=== PATIENT | female | born 1965 | race Caucasian/White ===

== ENCOUNTER → 2020-07-06 12:22 | Outpatient (CLI) | payer OTHER, SELFPAY | PROVIDERS: PCP Family Medicine; Visit Provider Internal Medicine Gastroenterology | DX: Z01.812 Encounter for preprocedural laboratory examination (principal); Z20.822 Contact with and (suspected) exposure to COVID-19; Z13.810 Encounter for screening for upper gastrointestinal disorder | CPT/HCPCS: U0003 ==

== ENCOUNTER 2020-07-09 11:34 | Day surgery (SDC) | payer OTHER, SELFPAY ==
[2020-07-03 11:03] VITALS: BMI 18.5
[2020-07-09] VITALS (7 sets, daily range): BP systolic 100–140; BP diastolic 61–79; PULSE 47–73; RESP 18; TEMP 36.6–36.7; O2SAT 97–100
--- NOTE | 2020-07-09 13:06 | HMH.PROC ---
[facility] Procedure Note Procedure Note:: Upper Endoscopy Procedure Report: Esophagogastroduodenoscopy with cold biopsies and TTS balloon dilation Endoscopost: Kal Jimenez II, MD Referring Physician: Maximino Hodges MD/Naman Kim MD Date of Procedure: July 09, 2020 Equipment: Olympus GIF 180 standard upper endoscope Sedation: MAC sedation Indications: Mrs. Torres is a 54-year-old female who was having mid upper retrosternal chest pain that began in April 2020. She did go to see a swage toolsetter or she had some cardiac evaluation with EKG that was normal in the first week of May 2020. The patient was placed on pantoprazole 40 mg by mouth daily. She was later seen by ENT (Dr. Naman Kim MD) and she was placed on pantoprazole 20 mg by mouth twice daily. Her chest pain has improved but she continues to have moderate belching postprandially. She also has some burning left upper quadrant/epigastric discomfort. She reports some nausea. She has some early satiety. She reports no bloating. She does state that she had a lot of anxiety when her chest pain developed (mother was in hospice). The patient reports occasional dysphagia. She reports no globus sensation. The patient reports regular bowel function but does have some bowel frequency with incomplete defecation. She did have a colonoscopy in February 2020 (Dr. Tres Chadwick) and was given a 5 to 7-year surveillance interval. Procedure: Prior to the procedure, a history and physical exam was performed, and patient's medications and allergies were reviewed. The risks, benefits and alternatives of the sedation and procedure were discussed with the patient. All questions were answered and informed consent was obtained. The patient was brought to the procedure room. Patient identification and proposed procedure were verified by the physician and the nurse. The patient was placed in a left lateral decubitus position and the scope was passed under direct vision. Throughout the procedure, the patient's blood pressure, pulse, and oxygen saturations were monitored continuously. The upper GI endoscopy was accomplished without difficulty. The patient tolerated the procedure well. Findings: The scope was passed directly into the upper esophagus and advanced to the third portion of the duodenum. The post bulbar duodenum and duodenal bulb were normal with normal mucosa and conniventes. Cold biopsies were taken from the post bulbar duodenum to rule out celiac disease. The scope was withdrawn through a normal duodenal bulb and pylorus into the stomach. There was bile reflux with mild linear reactive gastropathy of the antrum and body of the stomach. The remainder of the fundus of the stomach were grossly normal. Upon retroflexion there was a small 2 cm hiatal hernia. 2 biopsies were taken in the antrum and along the lesser curvature for histology to rule out gastritis and/or H pylori. The scope was then withdrawn into the esophagus. There was some separation at the GE junction suggestive of nonerosive GERD. There was no evidence of reflux esophagitis, Schatzki's ring or obvious Ramires's. There were tertiary contractions and evidence of mild esophageal dysmotility. The entire esophagus was dilated to 60 Portuguese/20 mm with a TTS hydrostatic balloon. The remainder of the esophageal mucosa was normal. Impression: 1. Nonerosive GERD with mild esophageal dysmotility and small 2 cm hiatal hernia 2. Bile reflux with mild linear reactive gastropathy Plan: The patient does have some functional dyspepsia, functional GERD and esophageal dyskinesia. I do feel that this is related to increased gas pressure gradients from lower digestive tract fermentation. We will discuss dietary measures and additional treatment options. I will follow-up the biopsies.
--- NOTE | 2020-07-09 15:40 | P.PN_ITS ---
[facility] Anesthesia Checklist - Structural Data Admitted From: Home Planned Operative Procedure/s: egd Consent for Planned Operative Procedure(s) Verified: Yes Verified Documents: Surgical Consent - Anesthesia Plan Anesthesia Risk discussed: Yes Anesthesia Plan: Patient unable to respond/answer ASA Class: II Anesthesia Type: General [facility] History Medical History: Reports:: Cancer (skin ca) Denies:: Diabetes Mellitus Type 1, Diabetes Mellitus Type 2, Internal Pacemaker, MRSA, Seizures *Have you ever received a pneumonia vaccine?: No *Have you received a flu vaccine this season?: Yes Anesthesia experience/problems:: none Other Surgeries: No: Pacemaker Amputation: No Fractures: No - *Social History Last grade of school completed: Advanced degree Smoking Status: Never smoker Alcohol Intake: current Alcohol Intake Frequency:: holidays/special occasions only Substance Use Type: denies use *Occupational Status:: employed Housing: house Household Members: spouse, family *Travel in the last 8 weeks: Inside the [facility] Family Hx:: No significant family history
== END 2020-07-09 13:57 | disposition home or self-care (01) ==
LOC: OUTP 11:42
PROVIDERS: PCP Family Medicine; Visit Provider Internal Medicine Gastroenterology
PROC: 0DJ08ZZ Inspection of Upper Intestinal Tract, Via Natural or Artificial Opening Endoscopic (ICD-10-PCS; CPT 43235; principal; 2020-07-09 12:30)
DX: K21.9 Gastro-esophageal reflux disease without esophagitis (principal); K22.4 Dyskinesia of esophagus; K44.9 Diaphragmatic hernia without obstruction or gangrene; K31.9 Disease of stomach and duodenum, unspecified; Z85.828 Personal history of other malignant neoplasm of skin; Z79.899 Other long term (current) drug therapy
CPT/HCPCS: 43239; 43249; C1726

== ENCOUNTER → 2020-10-01 12:40 | Outpatient (POV) | payer OTHER, SELFPAY | PROVIDERS: Visit Provider Nurse Practitioner Family | DX: Z00.00 Encounter for general adult medical examination without abnormal findings (principal) ==